=== PATIENT | female | born 1955 | race Caucasian/White ===

== ENCOUNTER 2017-07-04 10:52 | Emergency (ER) | payer BC ==
[2017-07-04 11:01] VITALS: BP 168/85
[2017-07-04] MEDS ORDERED: Albuterol/Ipratropium NEB.SOL* Albuterol 2.5 MG/Ipratropium 0.5 MG 3 ML INH ONE (11:04)
--- NOTE | 2017-07-04 11:51 | UC ---
Fabiano Sandoval Angela, scribed for Elvira Teague MD on 07/04/17 at 1122 . General HPI - HPI Summary HPI Summary: This pt is a 62 y/o female presenting to [facility] c/o productive cough, sputum x1 week. Pt notes she has clear sputum. She notes fever at night, headache and SOB. PT denies fevers, chills. Pt additionally c/o back pain from coughing, no SOB. 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 Pt denies rash, nausea, vomiting, sinus pain, ear ache. She has not taken any medications today. Pt has had OTC cough medications with little improvement. Pt states started to feel better but hosted 20 people for thanksgiving - states thinks she over did it. Pt with occasional wheeze. Pt states cough got wheeze worse. States feels tired, losing voice Pt has had the flu shot. She has been on prednisone before with no complications. Pt is currently on effexor, trazodone, and pantafol. Patients medication reviewed this visit. - History of Current Complaint Chief Complaint: UCRespiratory Stated Complaint: COUGH Time Seen by Provider: 07/04/17 11:15 Hx Obtained From: Patient Onset/Duration: Lasting Days, Still Present Associated Signs & Symptoms: Positive: Back Pain - POS:, Cough, Fever - at night , Headache, SOB, Other - NEG: rash, sinus pain, ear ache. Negative: Nausea, Vomiting - Allergy/Home Medications Allergies/Adverse Reactions: Allergies Allergy/AdvReac Type Severity Reaction Status Date / Time No Known Allergies Allergy Verified 07/04/17 11:01 PMH/Surg Hx/FS Hx/Imm Hx - Additional Past Medical History Additional PMH: PMHx: arthritis, arachnoid cyst, seizure disorder Previously Healthy: Yes Other Endocrine History: DENIES: diabetes GI/ History: Gastroesophageal Reflux Neurological History: Seizures - has not had it over 20 years. - Surgical History Surgical History: Yes Surgery Procedure, Year, and Place: gallbladder 05/21, hysterectomy, tubal, bladder suspension - Family History Known Family History: Negative: Hypertension, Diabetes - Social History Alcohol Use: Weekly Substance Use Type: None Smoking Status (MU): Current Some Day Smoker Type: Cigarettes Amount Used/How Often: 1 ppd Have You Smoked in the Last Year: Yes Household Exposure Type: Cigarettes Review of Systems Constitutional: Fever Skin: Negative Eyes: Negative ENT: Other - NEG: sinus pain, ear ache Respiratory: Shortness Of Breath, Cough, Other - wheeze Cardiovascular: Negative Gastrointestinal: Negative Genitourinary: Negative Motor: Negative Neurovascular: Negative Musculoskeletal: Other: - POS: back pain Neurological: Headache Psychological: Negative Is Patient Immunocompromised?: No All Other Systems Reviewed And Are Negative: Yes Physical Exam Triage Information Reviewed: Yes Appearance: Well-Appearing, No Pain Distress, Well-Nourished, Other: - tired appearing, larygnitis, coarse cough Vital Signs: Initial Vital Signs Temp 97.2 F 07/04/17 10:58 Pulse 71 07/04/17 10:58 Resp 18 07/04/17 10:58 BP 168/85 07/04/17 10:58 Pulse Ox 97 07/04/17 10:58 Vital Signs Reviewed: Yes Eye Exam: Normal Eyes: Positive: Conjunctiva Clear ENT: Positive: Normal ENT inspection, Hearing grossly normal, Pharyngeal erythema, Nasal drainage, Uvula midline, Other - + PND Dental Exam: Normal Neck exam: Normal Neck: Positive: Supple, Nontender, No Lymphadenopathy Respiratory Exam: Normal Respiratory: Positive: Chest non-tender, Lungs clear, Normal breath sounds, No respiratory distress, No accessory muscle use, Rhonchi - + right lung base slight rhonci + scattered wheeze + BS throughout + speaking full, easy sentences coarse cough, Wheezing Cardiovascular Exam: Normal Cardiovascular: Positive: RRR, No Murmur, Pulses Normal Abdominal Exam: Normal Abdomen Description: Positive: Nontender, No Organomegaly, Soft Bowel Sounds: Positive: Present Musculoskeletal Exam: Normal Neurological Exam: Normal Psychological Exam: Normal Skin Exam: Normal Diagnostics - Radiology Chest XR Xray Interpretation: No Acute Changes - IMPRESSION: No evidence for active cardiopulmonary disease. physician has reviewed this radiology report and agrees. Radiology Interpretation Completed By: Radiologist Course/Dx - Course Course Of Treatment: Blood pressure noted and patient informed to follow up with PCP. Pt with coarse cough, wheeze, fatigue progressive x 1 week. Pt states was improving, now feeling ill again. Pt with rhonci right base. no retractions. + laryngitis. Will check CXR. anticipate abx, prednisone. MDI. pt has flonase. secretion precautions. PT declined work note - Differential Dx - Multi-Symptom Provider Diagnoses: bronchitis Discharge - Discharge Plan Condition: Stable Disposition: HOME Prescriptions: Albuterol HFA INHALER* [Ventolin HFA Inhaler*] 1 puff INH Q4H PRN #1 mdi PRN Reason: wheeze Azithromycin TAB* [Zithromax TAB (Z-REINA) 250 mg #6 tabs] 2 tab PO .TODAY, THEN 1 DAILY #1 reina Benzonatate CAP* [Tessalon 100 MG CAP*] 100 mg PO TID #15 cap predniSONE TAB* [Deltasone TAB*] 50 mg PO DAILY #5 tab Patient Education Materials: Acute Bronchitis (ED) Referrals: Otto Ramirez MD [Primary Care Provider] - Additional Instructions: - Stay well hydrated. Drink plenty of non-alcoholic, non-caffinated beverages. - After you have been on antibiotics for 2 days - change your toothbrush and your pillowcase. These infections are spread by secretions - do NOT share eating or drinking utensils - clean items you share with other people such as cell phones, computer mouse, TV remote, computer tablets, etc - Alternate ibuprofen (Advil, Motrin) 600mg and Tylenol every 3 hours for pain or fever. Take with food. Do NOT take for more than 4-5 days. - Use your inhaler, 2 puffs every 4 hours for the first day, then every 4 hours as needed for cough or wheeze - Take prednisone as prescribed until gone - Call your doctor or return with questions or concerns The documentation as recorded by the Fabiano lechuga Angela accurately reflects the service I personally performed and the decisions made by , Elvira Teague MD.
--- NOTE | 2017-07-04 11:58 | RAD ---
INDICATION: Cough and fever. COMPARISON: There are no prior studies available for comparison. TECHNIQUE: Dual-energy PA and lateral views of the chest were obtained. FINDINGS: The heart is within normal limits in size. Mediastinal and hilar contours appear within normal limits. The lungs are underinflated and clear. No pleural effusion is seen. IMPRESSION: NO EVIDENCE FOR ACTIVE CARDIOPULMONARY DISEASE.
== END 2017-07-04 12:10 | disposition home or self-care (01) ==
LOC: UCEAST 10:52
DX: J40 Bronchitis, not specified as acute or chronic (principal); Z72.0 Tobacco use
CPT/HCPCS: 71020; 99212; A9270-GY; G0463

== ENCOUNTER 2017-10-05 14:25 | Emergency (ER) | payer BC ==
--- NOTE | 2017-10-05 14:32 | UC ---
Cardiac HPI - HPI Summary HPI Summary: SUDDEN ONSET OF DULL MID STERNAL CP RADIATING TO BACK, UP BACK OF HEAD AND INTO LEFT SHOULDER. PT HAS SOME NAUSEA, DIZZINESS AND FEELS SLIGHTLY SOB. SX WORSE WITH EXERTION. LAST NIGHT WOKE UP IN SWEATS. QUIT SMOKING 3 MONTHS AGO. NO PREVIOUS CARDIAC HISTORY. 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 PT UNDER SOME STRESS WAS RECENTLY DIAGNOSED WITH CANCER. - History of Current Complaint Stated Complaint: CHEST PAIN Time Seen by Provider: 10/05/17 14:28 Hx Obtained From: Patient Onset/Duration: Sudden Onset, Lasting Hours, Still Present Timing: Constant Initial Severity: Moderate Current Severity: Moderate Pain Intensity: 6 Chest Pain Location: Mid Sternal Character: Dull/Aching Aggravating Factor(s): Exertion Alleviating Factor(s): Nothing Associated Signs & Symptoms: Positive: Chest Pain, Recent Stress, Dizziness, SOB , Diaphoresis, Nausea/Vomiting, Back Pain - Allergy/Home Medications Allergies/Adverse Reactions: Allergies Allergy/AdvReac Type Severity Reaction Status Date / Time No Known Allergies Allergy Verified 10/05/17 14:43 Home Medications: Home Medications Venlafaxine EXT RELEASE CAP* [Effexor Xr CAP*] 150 mg PO DAILY 10/05/17 [ History Confirmed 10/05/17] PMH/Surg Hx/FS Hx/Imm Hx - Additional Past Medical History Additional PMH: BENIGN BRAIN TUMOR - Surgical History Surgical History: Yes Surgery Procedure, Year, and Place: gallbladder 05/21, hysterectomy, tubal, bladder suspension - Family History Known Family History: Negative: Hypertension, Diabetes Family History: LUNG CANCER - Social History Alcohol Use: Weekly Substance Use Type: None Smoking Status (MU): Current Some Day Smoker Type: Cigarettes Amount Used/How Often: 1 ppd Have You Smoked in the Last Year: Yes Household Exposure Type: Cigarettes Review of Systems Constitutional: Other - MALAISE Respiratory: Shortness Of Breath Cardiovascular: Chest Pain Gastrointestinal: Nausea Genitourinary: Negative All Other Systems Reviewed And Are Negative: Yes Physical Exam Triage Information Reviewed: Yes Appearance: Well-Appearing, No Pain Distress, Well-Nourished Vital Signs Reviewed: Yes Eyes: Positive: Conjunctiva Clear ENT: Positive: Hearing grossly normal Neck: Positive: Supple Respiratory Exam: Normal Cardiovascular Exam: Normal Abdomen Description: Positive: Soft Musculoskeletal: Positive: No Edema Neurological: Positive: Alert Psychological: Positive: Age Appropriate Behavior Skin: Negative: rashes Diagnostics - EKG Cardiac Rate: NL - 71BPM Cardiac Rhythm: Sinus: Normal Ectopy: None ST Segment: Non-Specific - TWAVE INVERSION V1, FLATTENING V2, V3 NOT SEEN ON PREVIOUS EKG 05/01/14 - Assessment/Plan Course Of Treatment: TO [facility] BY PRIVATE CAR. PT OFFERED TRANSPORT BY AMBULANCE BUT DECLINES. ADVISED THAT BY NOT TRAVELING IN A MONITORED SETTING SHE COULD BE RISKING WORSENING OF HER CONDITION THAT COULD POSE A THREAT TO HER LIFE, HEALTH AND MEDICAL SAFETY. SHE VERBALIZES UNDERSTANDING AND CONTINUES TO DECLINE AMBULANCE TRANSFER. - Clinical Impression Provider Diagnoses: CHEST PAIN - Physician Notifications Discussed Patient Care With: Juarez Hendrix - TO [facility] BY PRIVATE CAR Time Discussed With Above Provider: 14:55 Instructed by Provider To: MD Will See In ED Discharge - Discharge Plan Condition: Stable Disposition: OTHER Discharge Disposition Comment: TO [facility] BY PRIVATE CAR Patient Education Materials: Chest Pain (ED) Referrals: Otto Ramirez MD [Primary Care Provider] - If Needed Additional Instructions: GO DIRECTLY TO THE [facility] FROM HERE FOR FURTHER EVALUATION. YOU HAVE DECLINED AMBULANCE TRANSFER. BE ADVISED THAT BY NOT TRAVELING IN A MONITORED SETTING YOU COULD BE RISKING WORSENING OF YOUR CONDITION THAT COULD POSE A THREAT TO YOUR LIFE, HEALTH AND MEDICAL SAFETY.
[2017-10-05 14:41] VITALS: BP 156/94
== END 2017-10-05 15:01 ==
LOC: UCEAST 14:25
DX: R07.9 Chest pain, unspecified (principal); Z87.891 Personal history of nicotine dependence
CPT/HCPCS: 93005; 99211; G0463

== ENCOUNTER 2017-10-05 15:16 | Observation (INO) | payer BC ==
[2017-10-05 15:57] LABS: Hematocrit 43 % (35-47); Hemoglobin 14.7 g/dl (12.0-16.0); Mean Corpuscular HGB Conc 34 g/dl (31-36); Mean Corpuscular Hemoglobin 32 pg (27-31); Mean Corpuscular Volume 95 fL (80-97); Mean Platelet Volume 8 um3 (7.4-10.4); Platelet Count 301 10^3/ul (150-450); Red Blood Count 4.54 10^6/ul (4.0-5.4); Red Cell Distribution Width 13 % (10.5-15); White Blood Count 12.6 10^3/ul (3.5-10.8)
[2017-10-05] MEDS ORDERED: NS 0.9% 1000 ML* 1,000 ML IV SCH (16:00)
[2017-10-05 16:05] LABS: INR 0.92 (0.77-1.02)
[2017-10-05] MEDS ORDERED: Nitroglycerin TAB 0.4 MG* 0.4 MG TAB SL ONE (16:06)
[2017-10-05 16:25] LABS: ABS Basophils 0.1 10^3/ul (0-0.2); ABS Eosinophils 0.2 10^3/ul (0-0.6); ABS Lymphocytes 5.9 10^3/ul (1.0-4.8); ABS Monocytes 0.7 10^3/ul (0-0.8); ABS Neutrophils 5.7 10^3/ul (1.5-7.7); ABS Nucleated RBC 0 10^3/ul; Eosinophil % 1.9 % (0-6); Lymphocyte % 46.4 % (25-47); Nucleated Red Blood Cells % 0.3
[2017-10-05] MEDS ORDERED: Nitroglycerin 2% OINT* 1 GM PAK TOPICAL ONE (16:25)
--- NOTE | 2017-10-05 16:33 | RAD ---
Indication: Midsternal chest pain radiating to the neck and LEFT shoulder. History of tobacco use. Comparison: July 04, 2017 Technique: Upright AP 1555 hours Report: Minimal prominence of the interstitial markings without change. Negative for pleural effusion or pneumothorax. The heart, pulmonary vasculature, and mediastinal contours are unremarkable. IMPRESSION: Stigmata of potential chronic obstructive pulmonary disease based on correlation with the previous PA and lateral chest radiographs. No acute cardiopulmonary process evident.
[2017-10-05] MEDS ORDERED: Iohexol 350* (CONTRAST) 500 ML MDV IV ONE (16:37)
--- NOTE | 2017-10-05 18:12 | RAD ---
INDICATION: Chest pain radiating into the back and down LEFT arm. Pain between shoulder blades. COMPARISON: Chest radiograph of the same date. TECHNIQUE: Multidetector CT images were obtained from the lung apices to the ischial tuberosities with 100 mL Omnipaque 350 IV contrast. Arterial phase imaging. Multiplanar reformation with maximum intensity projection and 3-D arterial volume rendering. No oral contrast administered. CHEST REPORT: Clear lungs and pleural spaces. Negative for pneumothorax. Negative for thoracic lymphadenopathy. Negative for cardiomegaly or pericardial effusion. Normal diameter thoracic aorta with minimal atherosclerotic plaque. The ascending thoracic aorta measures up to 3.6 cm diameter. No evidence for aortic dissection. Variant common origin of the LEFT common carotid artery and RIGHT brachiocephalic artery from the aortic arch. Variant early origin of the LEFT vertebral artery from the LEFT subclavian artery. Negative for thoracic fracture or suspicious focal osseous lesions. Multilevel mild thoracic degenerative spondylosis. CHEST IMPRESSION: Negative for aneurysm or dissection of the thoracic aorta. No evidence for acute intrathoracic disease. ABDOMEN PELVIS REPORT: Arterial phase only series limits assessment of the abdominal viscera. Post cholecystectomy likely accounting for mild prominence of the common bile duct in absence of additional CT abnormality along the course of the common bile duct. Subcentimeter cyst at the RIGHT posterior hepatic segment . No CT abnormality of the pancreas or spleen. Negative for CT abnormality of the upper GI, small bowel, or appendix visualized lateral and inferior to the cecum. Mild colonic diverticulosis without findings of diverticulitis. Negative for ascites, free air, or significant hernias. Normal adrenal glands. Unremarkable kidneys with symmetric arterial phase enhancement. Unremarkable nondilated ureters and distended urinary bladder. Post hysterectomy. Unremarkable adnexal regions. Negative for lymphadenopathy. Mild atherosclerotic plaque of normal diameter abdominal aorta and iliac arteries. Unremarkable celiac axis and superior mesenteric artery. No significant stenosis evident at the solitary LEFT or paired RIGHT renal arteries. Normal opacification of the inferior mesenteric artery. Negative for fracture or suspicious osseous lesion of the lumbar sacral spine, pelvis, or visualized proximal femurs. ABDOMEN PELVIS IMPRESSION: 1. Negative for aneurysm or dissection of the abdominal aorta. 2. No acute abdominal pelvic pathologic process evident.
[2017-10-05] MEDS ORDERED: Nicotine GUM* 2 MG PO PRN (22:48)
[2017-10-05] MEDS ORDERED: Nicotine Lozenge* 4 MG LOZENGE MT PRN (22:48)
[2017-10-05] MEDS ORDERED: Acetaminophen TAB* 325 MG PO PRN (22:55)
[2017-10-05] MEDS ORDERED: traZODone TAB* 50 MG TAB PO SCH (23:45)
--- NOTE | 2017-10-06 02:38 | HP ---
CC: Dr. Flynn * [facility] MEDICINE HISTORY AND PHYSICAL: DATE OF ADMISSION: 10/05/17 PRIMARY CARE PHYSICIAN: Dr. Flynn. ATTENDING PHYSICIAN: Dr. Phil Ramon * (dictation provided by Selma Fulton NP). CHIEF COMPLAINT: Chest pain. HISTORY OF PRESENT ILLNESS: Ms. Polanco is a 62-year-old female with no significant past medical history, who presents today to the hospital with concern for chest pain. Ms. Polanco states that she has been in her normal state of health up until last night when she was awoken in the middle of the night feeling sweaty and dizzy. In the morning, she felt a little bit nauseous , but generally did not feel unwell and therefore made her way to work. Shortly after arrival at about 1300, she developed chest pain. 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 In the emergency room, Ms. Polanco states that she is chest pain free. She has had an EKG, which showed no evidence of ischemia and a troponin, which was 0.00. PAST MEDICAL HISTORY: 1. History of cholecystectomy. 2. History of hysterectomy. 3. History of bladder suspension. 4. History of stress test "many years ago" that was negative. MEDICATIONS: Outpatient are: 1. Pantoprazole 40 mg p.o. daily. 2. Trazodone 75 mg p.o. at bedtime. 3. Venlafaxine XR 150 mg p.o. daily. ALLERGIES: No known drug allergies. FAMILY HISTORY: The patient reports that multiple members from her mom side of the family had multiple myeloma. Her mom had lung cancer, but is doing well and father related to CHF. No history of early heart disease to her knowledge. SOCIAL HISTORY: The patient is a pack a day smoker. She denies any alcohol or drug use. REVIEW OF SYSTEMS: A 14-point review of systems was completed with Ms. Polanco and all those not mentioned above were negative. PHYSICAL EXAMINATION GENERAL: Ms. Polanco is sitting up in the bed, she is in no acute distress. VITAL SIGNS: Temperature 98.5, pulse rate 71, respiratory rate 20, O2 saturation 96% on room air, blood pressure 146/73. NEURO: She moves all extremities equally. There is no focal weakness or facial asymmetry. LUNGS: Clear to auscultation bilaterally with no accessory muscle use and good aeration. HEART: S1, S2. No murmur, rub, or gallop and regular. ABDOMEN: Soft, nontender with bowel sounds positive x4. EXTREMITIES: No cyanosis or edema. SKIN: Intact. DIAGNOSTIC STUDIES/LAB DATA: Sodium 138, potassium 4.0, chloride 105, serum bicarbonate 26, BUN 19, creatinine 0.79, glucose 105, lactic acid 0.7. Troponin 0.00 followed by 0.00. D-dimer less than 200. WBC 12.6, hemoglobin 14.7, hematocrit 43, platelet count 308. Chest x-ray shows "stigmata of potential chronic obstructive pulmonary disease based on correlation with previous PA and lateral chest radiographs." The chest, abdomen, and pelvis CTA is read as follows: "Negative for aneurysm or dissection of the thoracic aorta, no evidence of acute intrathoracic disease, negative for aneurysm or dissection of the abdominal aorta, no acute abdominal or pelvic pathological process evident. EKG shows sinus rhythm with no evidence of ischemia and a heart rate of about 60. ASSESSMENT: Ms. Polanco is a 62-year-old female with no significant past medical history, but assisted smoking history, who presents today to the hospital with concern for chest pain. Our plans are for observation in the hospital for the followin. Chest pain: The patient's story is concerning and there is also report that perhaps there were some abnormalities on the EKG at [employer]. However, that was not evident here today in the emergency room and I do not see a copy of that EKG available at the time of my dictation. Our plans for her to have a repeat troponin for a total of 3. She will have an EKG with any further chest pain and then she will go on for an exercise nuclear medicine stress test tomorrow. 2. Gastroesophageal reflux disease, continue pantoprazole. 3. Code status is full code. 4. DVT prophylaxis with SCDs. TIME SPENT: Approximately 60 minutes were spent on admission of this patient, more than half time spent with the patient at the bedside reviewing the events leading up to this hospitalization, performing the physical examination, and reviewing my of plan of care. SELMA FULTON, METAL WIRE COATING OPERATOR [id number]/[facility] #: [id number] CARLIN
[2017-10-06] MEDS ORDERED: Venlafaxine EXT RELEASE CAP* 75 MG PO SCH (09:00)
[2017-10-06] MEDS ORDERED: Aspirin Low Dose CHEW TAB* 81 MG PO SCH (09:00)
[2017-10-06] MEDS ORDERED: Omeprazole CAP* 20 MG PO SCH (09:00)
[2017-10-06 11:28] VITALS: BP 129/79
--- NOTE | 2017-10-06 13:47 | RAD ---
Edited for charges. INDICATION: Chest pain. COMPARISON: No relevant prior exams available on the [facility] PACS for comparison. TECHNIQUE: 10.800 mCi of Tc-99m Myoview were administered IV. SPECT images of the heart were obtained. Later on the same day. Under the direction of Dr. Blackwood, an exercise stress test was performed. The patient achieved a peak heart rate of 144 bpm, 91 % of the age- predicted maximum. Subsequently, the patient was given an IV injection of 25.400 mCi Tc- 99m Myoview. SPECT images of the heart were obtained and a gated wall motion study was performed. FINDINGS: Gated wall motion images were obtained at stress and demonstrate wall motion to be within normal limits. The calculated left ventricular ejection fraction is 72 % at stress. Estimated LEFT ventricular end diastolic volume is 62 mL. TID 1.12. Based on review of the attenuation corrected and non corrected images the distribution of radiopharmaceutical within the myocardium on the stress and rest images is within normal limits. No fixed or reversible regions of hypoperfusion evident. IMPRESSION: 1. No scintigraphic evidence for LEFT ventricular ischemia or infarct. 2. Normal LEFT ventricular wall motion and estimated ejection fraction. ASSESSMENT: Low risk based on nuclear portion. Based on imaging criteria from ACC/AHA 2002 Guideline Update for the Management of Patients With Chronic Stable Angina Table 23. Noninvasive Risk Stratification. MTDD
--- NOTE | 2017-10-06 14:05 | PN ---
Subjective Date of Service: 10/06/17 Interval History: Patient seen and examined at bedside. Denies fever, chills, shortness of breath , chest discomfort, N/V/D. Reports a headache. Pt states that she is concerned because her systolic BP was 200 yesterday. Tele: Sinus bandar, rate 50's Family History: Unchanged from Admission Social History: Unchanged from Admission Past Medical History: Unchanged from Admission Objective Active Medications: Acetaminophen (Tylenol Tab*) 650 mg PO Q6H PRN Reason: PAIN Aspirin (Aspirin Low Dose Tab*) 81 mg PO DAILY JAZIEL Nicotine Polacrilex (Nicotine Gum*) 2 mg PO Q2H PRN Reason: CRAVING Nicotine Polacrilex (Nicotine Lozenge*) 4 mg MT Q2H PRN Reason: CRAVINGS Omeprazole (Prilosec Cap*) 20 mg PO DAILY JAZIEL Trazodone HCl (Desyrel Tab*) 75 mg PO BEDTIME JAZIEL Venlafaxine HCl (Effexor Xr Cap*) 150 mg PO DAILY [facility] Vital Signs - 8 hr 10/06/17 10/06/17 07:27 10:59 Temperature 97.6 F 98.0 F Pulse Rate 56 58 Respiratory 16 14 Rate Blood Pressure 139/73 129/79 (mmHg) O2 Sat by Pulse 95 97 Oximetry Oxygen Devices in Use Now: None Appearance: NAD, sitting up in bed Ears/Nose/Mouth/Throat: Mucous Membranes Moist Respiratory: Symmetrical Chest Expansion and Respiratory Effort, Clear to Auscultation Cardiovascular: NL Sounds; No Murmurs; No JVD, RRR Abdominal: NL Sounds; No Tenderness; No Distention Extremities: No Edema Skin: No Rash or Ulcers Neurological: Alert and Oriented x 3, NL Muscle Strength and Tone Lines/Tubes/Other Access: Clean, Dry and Intact Peripheral IV - site benign Nutrition: Taking PO's Result Diagrams: 10/05/17 15:44 10/05/17 15:44 Assess/Plan/Problems-Billing Assessment: Ms. Polanco is a 62 yo female with no significant PMH, but a [place] smoker, who presented to the emergency room with complaints of chest pain. - Patient Problems (1) Chest pain Code(s): R07.9 - CHEST PAIN, UNSPECIFIED SNOMED Code(s): 50190032 Comment: - No EKG changes - Pt reports she was hypertensive yesterday, suspect this contributed to chest pain - Troponin 0.00 x3 - Neuclear stress test, Low risk (2) Leukocytosis Code(s): D72.829 - ELEVATED WHITE BLOOD CELL COUNT, UNSPECIFIED SNOMED Code(s) : 867515115 Comment: - Unclear etiology - Afebrile - No signs of infections (negative chest xray, negative UA) (3) GERD (gastroesophageal reflux disease) Code(s): K21.9 - GASTRO-ESOPHAGEAL REFLUX DISEASE WITHOUT ESOPHAGITIS SNOMED Code(s): 833109647 Comment: - Continue pantoprazole (4) DVT prophylaxis Code(s): NBY7897 - SNOMED Code(s): 978745669 (5) Full code status Code(s): Z78.9 - OTHER SPECIFIED HEALTH STATUS SNOMED Code(s): 995234086 Status and Disposition: OBV. Stable for discharge to home today.
--- NOTE | 2017-10-07 16:24 | DS ---
CC: Dr. Flynn * DISCHARGE SUMMARY: DATE OF ADMISSION: 10/05/17. DATE OF DISCHARGE: 10/06/17. ATTENDING PHYSICIAN: Dr. Mee Thomas * (dictated by Ofelia Phoenix NP). PRIMARY CARE PROVIDER: Dr. Flynn. PRIMARY DIAGNOSIS: Chest pain, suspect noncardiac in nature. SECONDARY DIAGNOSIS: Gastroesophageal reflux disease. STUDIES WHILE IN THE HOSPITAL: 1. Chest x-ray on 10/05/17. Radiologist's impression: Stigmata of potential chronic obstructive pulmonary disease based on correlation with the previous PA and lateral chest radiographics. No acute cardiopulmonary process evident. 2. Chest, abdomen and pelvis CTA on 10/05/17. Radiologist's impression: Negative for aneurysm or dissection of the abdominal aorta. No acute abdominal pelvic pathology process evident. Negative for aneurysm or dissection of the thoracic aorta. No evidence for acute intrathoracic disease. 3. Nuclear cardiac stress test on 10/06/17. Lip Cutter's observation: Resting EKG, normal sinus rhythm, 62. No acute ST-T wave changes. T-wave inversions in aVL. Exercise by standard Kurtis protocol 54 achieving 10.1 METS heart rate to 91% age predicted with normal 1 minute recovery heart rate. Baseline hypertension with normal increase with exertion. No reproduction of the patient's chest discomfort or anginal symptoms with exercise. No EKG changes of ischemia with exercises or in recovery. No arrhythmias provoked. Conclusion: Low risk Ordoñez score EKG portion of the exercise stress test. Radiologist impression: No cisternographic evidence of left ventricular ischemia or infarct. Normal left ventricular wall motion and estimated ejection fraction. Assessment: Low risk based on nuclear portion. DISCHARGE MEDICATIONS: Continued home medications: 1. Protonix 40 mg oral daily. 2. Trazodone 75 mg oral daily at bedtime. 3. Effexor XR 150 mg oral daily. HISTORY OF PRESENT ILLNESS/HOSPITAL COURSE: Ms. Polanco is a 62-year-old female with no significant past medical history who presented to the hospital from urgent care, where she stated that she had been in normal state of health leading up to when she woke in the middle of the night feeling sweaty and dizzy. In the morning, she felt a bit nauseous but generally did not feel unwell and therefore she went to work. Shortly after arriving to work, she developed chest discomfort. As she works a nurse at [employer], she reportedly had an EKG there showing concern for a possible abnormality in the EKG and she was therefore directly transported to the emergency room. While in the emergency room, the patient was chest pain free. She had an EKG showing no evidence of ischemia and a troponin that was 0.00. Hospitalists were asked to evaluate her for admission. While in the hospital, the patient had her troponins trended. They were flat at 0.00. She had an exercise nuclear stress test that was a low risk with no ST -T changes or concerns for ischemia. The patient it is to note was noted to be hypertensive upon arrival, but this resolved during her stay and she was mostly normotensive today with systolic blood pressures in one teens to 130s. The patient remained chest pain free. She had a lipid profile showing a cholesterol of 193, LDL of 123. Ms. Polanco is stable for discharge to home today. Vital signs are as follows: Temperature 98.0, heart rate 58, respiratory rate 14, O2 sat 97% on room air, blood pressure 129/79. DISCHARGE PLAN: Ms. Polanco is stable for discharge to home. Activity as tolerated. She has been encouraged to eat a heart healthy low-sodium diet. As far as her chest pain, I suspect this was noncardiac in nature although it could have been secondary to hypertension. She has not been hypertensive today , so I did not start her on antihypertensives. She has been asked to monitor her blood pressures at home and to call her primary if she develops persistent hypertension prior to her followup appointment. She has been resumed on her usual home medications. She has been encouraged to stop smoking. She has a followup appointment with Dr. Flynn on 10/14 at 9 a.m. She has been asked to return to the emergency room for any shortness of breath or return of her chest discomfort. Points of discussion at followup: Please continue to monitor the patient's blood pressure as she may need to be started on antihypertensives. I suspect some of her chest pain could be secondary to anxiety and continued to discuss with her ways to relief stress and anxiety as although she states that she is not stressed out about her 's terminal illness, I believe in fact she may be feeling anxious surrounding his diagnosis. Please continue to encourage the patient to eat a heart healthy diet. The patient's LDL was borderline high. Please continue to monitor her lipids and statin accordingly. This is a summarized report of a complex medical history and hospital stay. For further details, please see the entire medical record. TIME SPENT: Time for this discharge was approximately 50 minutes, greater than half of that was spent with the patient and her discussing discharge plans and instructions. CONDITION ON DISCHARGE: Stable. OFELIA PHOENIX NP [id number]/CPS #: [id number] CARLIN
== END 2017-10-06 15:16 | disposition home or self-care (01) ==
LOC: ED 15:16 → MEDTELE 18:08
PROVIDERS: ADMIT Internal Medicine; ATTEND Internal Medicine
DX: R07.9 Chest pain, unspecified (principal); D72.829 Elevated white blood cell count, unspecified; K21.9 Gastro-esophageal reflux disease without esophagitis
CPT/HCPCS: 36415; 71045; 71275; 74174; 78452; 80053; 80061; 83605; 83690; 84484; 85025; 85060; 85379; 85610; 86140; 93005; 99285; A9270-GY; A9502; G0378; Q9967

== ENCOUNTER 2018-09-15 13:29 | Emergency (ER) | payer BC ==
[2018-09-15 14:10] VITALS: BP 133/72
--- NOTE | 2018-09-15 14:25 | UC ---
Complaint Female HPI - HPI Summary HPI Summary: Pt has been feeling extreme fatigue and lower back pain for many months. She feels she has a UTI and just feels like she can't keep up with things in life. She is also feeling that maybe some of this has to do w/ her dying a couple of months ago but she's not sure. She is not sure if she has dealt with or not. she is also concerned that her symptoms are the same as her 's when he of cancer. she used to smoke, stopped for quite some time, and recently started again. - History Of Current Complaint Chief Complaint: UCGeneralIllness Stated Complaint: POSS UTI Time Seen by Provider: 09/15/18 14:13 Hx Obtained From: Patient Pain Intensity: 5 Pain Scale Used: 0-10 Numeric - Allergies/Home Medications Allergies/Adverse Reactions: Allergies Allergy/AdvReac Type Severity Reaction Status Date / Time No Known Allergies Allergy Verified 09/15/18 14:09 PMH/Surg Hx/FS Hx/Imm Hx Previously Healthy: Yes - Surgical History Surgical History: Yes Surgery Procedure, Year, and Place: gallbladder 05/21, hysterectomy, tubal, bladder suspension - Family History Known Family History: Positive: Hypertension Negative: Diabetes Family History: LUNG CANCER - Social History Alcohol Use: Weekly Substance Use Type: None Smoking Status (MU): Current Some Day Smoker Type: Cigarettes Amount Used/How Often: 1 ppd Have You Smoked in the Last Year: Yes Household Exposure Type: Cigarettes Review of Systems All Other Systems Reviewed And Are Negative: Yes Constitutional: Positive: Negative, Fatigue. Negative: Fever, Chills Respiratory: Positive: Negative Cardiovascular: Positive: Negative Gastrointestinal: Negative: Abdominal Pain Genitourinary: Negative: Dysuria, Hematuria, Frequency, Urgency Musculoskeletal: Positive: Other: - back pain, lower Neurological: Positive: Weakness. Negative: Headache Physical Exam Triage Information Reviewed: Yes Appearance: Well-Appearing, Other: - does cry during visit when her has been brought up Vital Signs: Initial Vital Signs Temp 98.3 F 09/15/18 14:05 Pulse 79 09/15/18 14:05 Resp 18 09/15/18 14:05 BP 133/72 09/15/18 14:05 Pulse Ox 99 09/15/18 14:05 Vital Signs Reviewed: Yes Complaint Female Dx - Course Course Of Treatment: Extreme fatigue and lower back pain for quite some time, worsening over the past week or so. Unclear of source w/ essentially neg. UA only. + for leuks , sending for cx. Vitals good. We will call her w/ results so she can rest at home. What should be noted is that pt. has lost her approx 2 mo. ago and there is thought she has not dealt w/ this; bereavement. This was her 2nd marriage and partner was younger than her; unexpected illness. She is concerned she has same dx of CA as partner from given that it is similar symptoms. I have obliged and ordered some preliminary testing to r/o other causes of fatigue but I strongly encouraged her to see mental health provider. it is expected to feel this way w/ depression/bereavement. pt is a care provider by nature and i explained she should start some self-care for herself to ease this time. - Differential Dx/Diagnosis Differential Diagnosis/HQI/PQRI: Urinary Tract Infection, Other Provider Diagnosis: Fatigue Discharge - Sign-Out/Discharge Documenting (check all that apply): Patient Departure All imaging exams completed and their final reports reviewed: Yes - Discharge Plan Condition: Good Disposition: HOME Patient Education Materials: Fatigue (ED) Forms: *Work Release Referrals: Otto Ramirez MD [Primary Care Provider] - Additional Instructions: We will call you with your lab results and CXR results. But my main concern is addressing the things we talked about. Please consider following up with your pcp to discuss other issues. - Billing Disposition and Condition Condition: GOOD Disposition: Home
[2018-09-15 14:31] LABS: Influenza A Molecular NEGATIVE (Negative); Influenza B Molecular NEGATIVE (Negative)
[2018-09-15 19:09] LABS: ABS Basophils 0.1 10^3/ul (0-0.2); ABS Eosinophils 0.2 10^3/ul (0-0.6); ABS Monocytes 0.8 10^3/ul (0-0.8); ABS Neutrophils 7.6 10^3/ul (1.5-7.7); ABS Nucleated RBC 0 10^3/ul; Eosinophil % 1.8 %; Hematocrit 40 % (35-47); Hemoglobin 13.3 g/dl (12.0-16.0); Lymphocyte % 31.4 %; Mean Corpuscular HGB Conc 34 g/dl (31-36); Mean Corpuscular Hemoglobin 32 pg (27-31); Mean Corpuscular Volume 96 fL (80-97); Mean Platelet Volume 8.2 fL (7.4-10.4); Nucleated Red Blood Cells % 0; Platelet Count 341 10^3/ul (150-450); Red Blood Count 4.17 10^6/ul (4.00-5.40); Red Cell Distribution Width 13 % (10.5-15); White Blood Count 12.7 10^3/ul (3.5-10.8)
[2018-09-15 19:19] LABS: Calcium 9.5 mg/dL (8.6-10.3); Potassium 4.3 mmol/L (3.5-5.0)
[2018-09-15 19:24] LABS: BUN/Creatinine Ratio 24.2 (8-20); EGFR African American 109.8 (>60); EGFR Non-African American 90.7 (>60)
[2018-09-15 19:36] LABS: TSH (Thyroid Stimulating Horm) 1.07 mcIU/mL (0.34-5.60)
--- NOTE | 2018-09-16 11:38 | UC ---
- Progress Note Progress Note: SPOKE TO PATIENT. ADVISED OF LAB RESULTS. BMP NORMAL. TSH NORMAL. CBC WITH SLIGHTLY ELEVATED WHITE BLOOD CELL COUNT. PATIENT STATES SHE IS DEALING WITH A SINUS INFECTION THAT SHE THINKS IS VIRAL. SHE DECLINES TREATMENT FOR THIS AT THIS TIME. ENCOURAGED HER TO FOLLOW UP WITH HER PCP FOR REEVALUATION OF THIS AND WELL TO DISCUSS BEREAVEMENT ISSUES DETAILED IN THE PROGRESS NOTE FROM HER VISIT. PATIENT STATES SHE FEELS BETTER TODAY AND WILL FOLLOW UP. URINE CULTURE IS STILL PENDING. Course/Dx - Diagnoses Provider Diagnoses: Fatigue Discharge - Sign-Out/Discharge Documenting (check all that apply): Post-Discharge Follow Up All imaging exams completed and their final reports reviewed: Yes - Discharge Plan Condition: Good Disposition: HOME Patient Education Materials: Fatigue (ED) Forms: *Work Release Referrals: Otto Ramirez MD [Primary Care Provider] - Additional Instructions: We will call you with your lab results and CXR results. But my main concern is addressing the things we talked about. Please consider following up with your pcp to discuss other issues. - Billing Disposition and Condition Condition: GOOD Disposition: Home
== END 2018-09-15 15:33 | disposition home or self-care (01) ==
LOC: UCEAST 13:29
DX: R53.83 Other fatigue (principal); M54.5 Low back pain; F17.210 Nicotine dependence, cigarettes, uncomplicated
CPT/HCPCS: 36415; 71046; 80048; 81003; 84443; 85025; 87086; 99211; G0463

== ENCOUNTER 2018-12-21 14:30 | Emergency (ER) | payer BC ==
[2018-12-21 14:37] VITALS: BP 115/62
--- NOTE | 2018-12-21 14:39 | UC ---
Complaint Female HPI - HPI Summary HPI Summary: 63 y/o female presents to the urgent care c/o urinary frequency and burning on urination w/ lower back pain for the past 2 day. symptoms worsen today. Pain on urination is 4/10. She has been drinking water, but has not taken any medication to alleviate symptoms. Pt states Hx of UTI in the past. Pt denies fever, flank pain, SOB, abdominal pain, N/V/D, vaginal discharge, MASON, or dizziness. - History Of Current Complaint Chief Complaint: UCGU Stated Complaint: UTI Time Seen by Provider: 12/21/18 14:32 Hx Obtained From: Patient ?: No Onset/Duration: Gradual Onset, Lasting Days - 2 days, Still Present, Worse Since - today Timing: Intermittent, Lasting Seconds Severity Initially: Mild Severity Currently: Moderate Pain Intensity: 4 Pain Scale Used: 0-10 Numeric Character: Burning Aggravating Factor(s): Urination Associated Signs And Symptoms: Positive: Back Pain. Negative: Fever, Vaginal Bleeding/Discharge, Vaginal Discharge, Nausea - Risk Factors Ectopic Risk Factor: Negative Ovarian Torsion Risk Factor: Negative - Allergies/Home Medications Allergies/Adverse Reactions: Allergies Allergy/AdvReac Type Severity Reaction Status Date / Time No Known Allergies Allergy Verified 12/21/18 14:37 Home Medications: Home Medications Losartan TAB* [Cozaar TAB*] 100 mg PO DAILY 12/21/18 [History Confirmed 12/21/18 ] PMH/Surg Hx/FS Hx/Imm Hx Previously Healthy: Yes Cardiovascular History: Hypertension GI/ History: Gastroesophageal Reflux - Surgical History Surgical History: Yes Surgery Procedure, Year, and Place: gallbladder 05/21, hysterectomy, tubal, bladder suspension - Family History Known Family History: Positive: Hypertension Negative: Diabetes Family History: LUNG CANCER - Social History Occupation: Employed Full-time Lives: With Family Alcohol Use: Weekly Substance Use Type: None Smoking Status (MU): Current Some Day Smoker Type: Cigarettes Amount Used/How Often: 1 ppd Have You Smoked in the Last Year: Yes Household Exposure Type: Cigarettes Review of Systems All Other Systems Reviewed And Are Negative: Yes Constitutional: Positive: Negative Skin: Positive: Negative Eyes: Positive: Negative ENT: Positive: Negative Respiratory: Positive: Negative Cardiovascular: Positive: Negative Gastrointestinal: Positive: Negative Genitourinary: Positive: Dysuria, Hematuria, Frequency Motor: Positive: Negative Neurovascular: Positive: Negative Musculoskeletal: Positive: Negative Neurological: Positive: Negative Psychological: Positive: Negative Is Patient Immunocompromised?: No Physical Exam - Summary Physical Exam Summary: VITAL SIGNS: Reviewed. GENERAL: Patient is a well developed and nourished female who is sitting comfortable in the examining table. Patient is not in any acute respiratory distress. HEAD AND FACE: No signs of trauma. No ecchymosis, hematomas or skull depressions. No sinus tenderness. EYES: PERRLA, EOMI x 2, No injected conjunctiva, clear watery eyes, no nystagmus. No photophobia. EARS: Hearing grossly intact. Ear canals and tympanic membranes are within normal limits. MOUTH: pharynx with no erythema, no exudates,no palatal petechiae. no B/L tonsillar enlargement Uvula in midline. NECK: Supple, trachea is midline, no lymphadenopathy, no JVD, no carotid bruit, no c-spine tenderness, neck with full ROM. CHEST: Symmetric, no tenderness at palpation LUNGS: Clear to auscultation bilaterally. No wheezing or crackles. CVS: Regular rate and rhythm, S1 and S2 present, no murmurs or gallops appreciated. ABDOMEN: Soft, non-tender. No signs of distention. No rebound no guarding, and no masses palpated. Bowel sounds are normal. BACK:no scoliosis or lesions, non tender to palpation, No B/L CVA tenderness EXTREMITIES: FROM in all major joints, no edema, no cyanosis or clubbing. NEURO: Alert and oriented x 3. No acute neurological deficits. Speech is normal and follows commands. SKIN: Dry and warm Triage Information Reviewed: Yes Vital Signs: Initial Vital Signs Temp 97.3 F 12/21/18 14:34 Pulse 82 12/21/18 14:34 Resp 18 12/21/18 14:34 BP 115/62 12/21/18 14:34 Pulse Ox 98 12/21/18 14:34 Complaint Female Dx - Course Course Of Treatment: 63 y/o female presents to the urgent care c/o urinary frequency and burning on urination w/ lower back pain for the past 2 day. symptoms worsen today. Pain on urination is 4/10. She has been drinking water, but has not taken any medication to alleviate symptoms. Pt states Hx of UTI in the past. Pt denies fever, flank pain, SOB, abdominal pain, N/V/D, vaginal discharge, MASON, or dizziness. Hx obtained. PE: WNL. UA results: trace ketones, 1+ Leukoesterase.. Pt Rx Ciprofloxacin PO PO x 7 days. Pyridium 100mg PO TID x 2 days. Advised to increase fluid intake. Urine sent for culture if any abnormality Pt will be notified for further treatment. Pt Rx Fluconazole PO in case if she develops yeast infection at the end of antibiotic treatment. Pt advised If symptoms do not improve to return to the urgent care or f/u with PCP. Pt understood and agreed. Left the clinic ambulating. - Differential Dx/Diagnosis Differential Diagnosis/HQI/PQRI: Renal Colic, Ureteral Stone, Urinary Tract Infection Provider Diagnosis: UTI (urinary tract infection) Discharge - Sign-Out/Discharge Documenting (check all that apply): Patient Departure - d/C home All imaging exams completed and their final reports reviewed: No Studies - Discharge Plan Condition: Stable Disposition: HOME Prescriptions: Ciprofloxacin TAB* [Cipro 500 MG TAB*] 500 mg PO BID #14 tab Fluconazole 150 MG TAB* [Diflucan 150 MG TAB*] 150 mg PO ONCE #1 tablet Phenazopyridine TAB* [Pyridium 100 mg TAB*] 100 mg PO TID #6 tab Patient Education Materials: Urinary Tract Infection in Women (ED) Referrals: Otto Ramirez MD [Primary Care Provider] - 3 Days Additional Instructions: 1- Please take Ciprofloxacin PO x 7 days. Pyridium 100 mg PO TID x 2 days to alleviate urinary symptoms. Increase increase fluid intake. drink cranberry juice. 2-Urine sent for culture if any abnormality, you will be notified for further treatment. 3-Take fluconazole PO as directed once only if you developa yeast infection after finishing the antibiotic treatment 4-If symptoms do not improve please return to the urgent care or f/u with your PCP in 3 days. - Billing Disposition and Condition Condition: STABLE Disposition: Home
== END 2018-12-21 15:05 | disposition home or self-care (01) ==
LOC: UCEAST 14:30
DX: N39.0 Urinary tract infection, site not specified (principal); M54.5 Low back pain; I10 Essential (primary) hypertension; F17.210 Nicotine dependence, cigarettes, uncomplicated; Z79.899 Other long term (current) drug therapy
CPT/HCPCS: 81003; 99212; G0463

== ENCOUNTER 2019-10-29 11:06 | Emergency (ER) | payer BC ==
--- NOTE | 2019-10-29 11:19 | UC ---
Respiratory Complaint HPI - HPI Summary HPI Summary: Patient is 64 year old female , who present today to the urgent care with shortness of breath for past 2 days. She has been feeling ill since Wednesday, has cough which was initially dry and now productive along with sore throat . She has some runny nose and feels very fatigued. Today is having increased SOB and feels worse. She is a nurse . She has a history of COPD and is not on any inhalers Denies any fever,chest pain. Denies any abdominal pain , nausea or vomiting , diarrhea or constipation. - History of Current Complaint Stated Complaint: SHORT OF BREATH/COUGH/SORE THROAT Time Seen by Provider: 10/29/19 11:09 Hx Obtained From: Patient - Allergies/Home Medications Allergies/Adverse Reactions: Allergies Allergy/AdvReac Type Severity Reaction Status Date / Time No Known Allergies Allergy Verified 10/29/19 11:28 Home Medications: Home Medications Pantoprazole TAB * [Protonix TAB*] 40 mg PO DAILY 10/05/17 [History Confirmed ] Venlafaxine EXT RELEASE CAP* [Effexor Xr CAP*] 150 mg PO DAILY 10/05/17 [ History Confirmed 10/29/19] traZODone TAB* [Desyrel TAB*] 75 mg PO BEDTIME 10/05/17 [History Confirmed 10/28] Losartan TAB* [Cozaar TAB*] 100 mg PO DAILY 12/21/18 [History Confirmed 10/29/19 ] Carisoprodol [Soma] 250 mg PO Q8HR PRN #10 tablet MDD 3 03/29/19 [Rx Confirmed 10/29/19] Azithromyxin REINA (NF) [Z-Reina (Zithromax) 250 mg tabs #6] 2 tab PO .TODAY, THEN 1 DAILY #6 tab 10/29/19 [Rx] Benzonatate CAP* [Tessalon 100 MG CAP*] 100 mg PO TID PRN 10 Days #30 cap [Rx] PMH/Surg Hx/FS Hx/Imm Hx - Additional Past Medical History Additional PMH: Past Medical History : COPD, HTN Past Surgical History: Cholecystectomy, hysterectomy, tubal ligation, bladder suspension surgery Family History : Hypertension Social History : Occasional alcohol, daily smoker, no drug use. She works as a nurse Previously Healthy: Yes - Surgical History Surgical History: Yes Surgery Procedure, Year, and Place: gallbladder 05/21, hysterectomy, tubal, bladder suspension - Family History Known Family History: Positive: Hypertension Negative: Diabetes Family History: LUNG CANCER - Social History Alcohol Use: Occasionally Substance Use Type: None Smoking Status (MU): Heavy Every Day Tobacco Smoker Type: Cigarettes Amount Used/How Often: 1 ppd Have You Smoked in the Last Year: Yes Household Exposure Type: Cigarettes Review of Systems All Other Systems Reviewed And Are Negative: Yes Constitutional: Positive: Fatigue. Negative: Fever Skin: Positive: Negative Eyes: Positive: Negative ENT: Positive: Sore Throat, Nasal Discharge Respiratory: Positive: Shortness Of Breath, Cough - productive now Cardiovascular: Negative: Chest Pain Gastrointestinal: Positive: Negative Genitourinary: Positive: Negative Motor: Positive: Negative Neurovascular: Positive: Negative Musculoskeletal: Positive: Negative Neurological/Mental Status: Positive: Negative Psychological: Positive: Negative Is Patient Immunocompromised?: No Physical Exam - Summary Physical Exam Summary: Physical Exam: Vital signs were reviewed Patient alert and oriented and comfortable. Does not appear to be in any distress and speaking in full sentences. No wheezing , rhonchi or crackles heard by Nurse Andino on auscultation. To decrease the risk of transmission of covid 19, this interview was done with telemedicine which does limit the physical examination. Triage Information Reviewed: Yes Vital Signs Reviewed: Yes Respiratory Course/Dx - Course Course Of Treatment: She was put in isolation. Telemedicine used. Strep test : neg flu: neg She was given albuterol MDI HFA treatment here With the patient's symptoms worsening, this could be secondary to COVID 19 virus infection , so COVID 19 test was obtained. Patient will follow up with [facility]. If the patient starts to feel worse-she agrees to report to the emergency department We discussed that if this could be bronchitis or COPD exacerbation which is mainly viral but given her symptoms progressively getting worse over the past 3 days, plan to treat her with antibiotics which she can stop if COVID 19 testing is positive. We also discussed the role of steroids but it has been shown that prednisone can increase her risk of secondary bacterial infection and she declined. I'll prescribe the medication to the pharmacy which her daughter will collect. - Differential Dx/Diagnosis Differential Diagnosis/HQI/PQRI: Other - COVID 19 Provider Diagnosis: Respiratory infection Discharge ED - Sign-Out/Discharge Documenting (check all that apply): Patient Departure All imaging exams completed and their final reports reviewed: No Studies - and - Discharge Plan Condition: Stable Disposition: HOME Prescriptions: Azithromyxin REINA (NF) [Z-Reina (Zithromax) 250 mg tabs #6] 2 tab PO .TODAY, THEN 1 DAILY #6 tab Benzonatate CAP* [Tessalon 100 MG CAP*] 100 mg PO TID PRN 10 Days #30 cap PRN Reason: Cough Patient Education Materials: Upper Respiratory Infection (ED) Forms: COVID-19 Tested & Isolation Referrals: Otot Ramirez MD [Primary Care Provider] - Additional Instructions: Please start taking the medication as prescribed to the pharmacy . Self quarantine recommendations as per [facility]. [facility] with the [facility]. If his symptoms worsen and you start to have difficulty breathing please call emergency room to alert them to get her in for evaluation. Patients blood pressure slightly high in Urgent care today , plan follow up with PCP for better control Return to Urgent care / ER if symptoms get worse. - Billing Disposition and Condition Condition: STABLE Disposition: Home
[2019-10-29 11:30] VITALS: BP 155/80
[2019-10-29 11:40] LABS: Influenza A Molecular Negative (Negative); Influenza B Molecular Negative (Negative)
[2019-10-29] MEDS ORDERED: Albuterol HFA INHALER* 8 gm MDI INH ONE (11:41)
== END 2019-10-29 12:45 | disposition home or self-care (01) ==
LOC: UCEAST 11:06
DX: J98.8 Other specified respiratory disorders (principal); R06.02 Shortness of breath; R05 Cough; J02.9 Acute pharyngitis, unspecified; J44.9 Chronic obstructive pulmonary disease, unspecified; I10 Essential (primary) hypertension; Z79.899 Other long term (current) drug therapy; F17.210 Nicotine dependence, cigarettes, uncomplicated
CPT/HCPCS: 87651; 99212; A9270-GY; G0463; U0002